=== PATIENT | female | born 1935 | race African-American/Black ===

== ENCOUNTER 2018-07-25 18:12 | Emergency (ER) | payer MEDICARE, OTHER ==
[~2018-07-25] VITALS: Ht 167.6 cm; Wt 54.4 kg
[2018-07-25 18:12] VITALS: BP 0/0
[2018-07-25] MEDS ORDERED: Calcium Chloride 10% 10ml carpuject IVP ONE (18:51)
[2018-07-25] MEDS ORDERED: Amiodarone 150mg/ml 3ml Amp ONE (18:51)
[2018-07-25] MEDS ORDERED: Sodium Bicarbonate 8.4% 50ml Inj ONE (18:51)
[2018-07-25 20:51] VITALS: BP 0/0
--- NOTE | 2018-07-25 21:38 | Emergency Room Report ---
History of Present Illness General Chief Complaint: CPR Source: Patient, EMS Present Illness HPI 73-year-old female presents ED in cardiac arrest. Per EMS family called 911 because patient appeared unresponsive approximately 30 minutes prior to arrival. Per EMS patient was having agonal breathing and bradycardic. Intubated. Given atropine 2. On transcutaneous pacing. Upon arrival to ED patient had lost pulses. Family states that patient has no known medical problems. However she does not see a doctor. Does not take any medications. Family states that patient was feeling fine until today. No other aggravating relieving factors. No other associated symptoms Allergies: Coded Allergies: UNABLE TO ASSESS (Unverified , 07/25/18) Patient History Past Medical History: none Past Surgical History: none Pertinent Family History: none Social History: Denies: smoking, alcohol use, drug use Now: No Immunizations: UTD Reviewed Nursing Documentation: PMH: Agreed; PSxH: Agreed Nursing Documentation-PMH Past Medical History Deferred: Patient Unconscious Past Medical History: No Stated History Review of Systems All Other Systems: limited Physical Exam Vital Signs Date Time Temp Pulse Resp B/P (MAP) Pulse Ox O2 Delivery O2 Flow Rate FiO2 07/25/18 18:10 0 0 0/0 0 Ambu-Bag Sp02 EP Interpretation: reviewed, abnormal General Appearance: other - unresponsive Head: normocephalic Eyes: bilateral eye normal inspection, bilateral eye PERRL ENT: hearing grossly normal, normal pharynx, no angioedema, normal voice Neck: normal inspection Respiratory: other - intubated Cardiovascular #1: other - no pulse Gastrointestinal: normal inspection Rectal: deferred Genitourinary: no CVA tenderness Musculoskeletal: normal inspection Neurologic: other - unresponsive Psychiatric: other - unresponsive Skin: cyanosis Lymphatic: normal inspection Procedures Critical Care Time Critical Care Time i. I feel this is a highly complex case requiring extensive working including EKG/Rhythm strip, Xray/CT/US, Blood/urine lab work, repeat exams while in ED, and administration of strong opiates/narcotics for pain control, admission to hospital or close patient follow up. Total time: 30 min bedside evaluation and treatment excludes procedures (EKG). Reason for critical care: cardiac arrest Possible complications: hypotension, hypertension, PA, shock, arrhythmias, metabolic acidosis, end organ damage, respiratory failure. Interventions: ACLS, chest compressions, defbrillation, amiodarone, calcium/ bicarbonate, epi. evaluation with bedside sono Course: Patient presenting a cardiac arrest. Initially bradycardic with agonal breathing per EMS. Initial rhythm PEA. Given calcium and bicarbonate. Given multiple doses of epinephrine. Accu-Chek within normal limits. Intubated in the field. Patient had a few episodes of ventricular fibrillation and was subsequently shocked. Given amiodarone. After multiple rounds of resuscitation patient remains in PEA. Prognosis poor. decision made to terminate resuscitative efforts. Patient expires Consultations: nursing staff, EMS, family Performed by: Dr Altamirano Tolerated well condition = j. because of unstable vital signs this patient had a condition that could potentially threaten life or limb. I feel this is a critical patient who required my full attention while patient was considered critical. Total Critical Care Time excluding procedures was greater than 35 minutes Cardioversion Cardioversion: Consent: Emergent Indication: Other - Vfib Type: Desynchonis Response: Other - PEA Attempts: Other - multiple Patient Tolerated: Poor Complications: None CPR/Code Blue CPR/Code Blue Narrative see code blue sheet for full narrative Medical Decision Making ER Course 73-year-old female presents ED in cardiac arrest. Unresponsive. Intubated DifferentialPEA, PA, sepsis Patient based on stretcher. Initially bradycardic however upon arrival patient had lost pulses. Initial rhythm PEA. Given calcium and bicarbonate. Given multiple rounds of epinephrine. Chest compressions started. Patient being ventilated. After multiple rounds of compressions patient went into ventricular fibrillation. Subsequently shocked. Shocked multiple times. Given amiodarone for refractory V. fib. Patient returned to PEA After multiple rounds of resuscitation patient remains in PEA. Prognosis poor. Decision made to terminate resuscitative efforts. Patient expires I discussed with patient's sons. They are not aware of any medical condition for the patient. However they did admit that patient does not see a doctor. Diagnosiscardiac arrest Patient expires in ED Last Vital Signs Date Time Temp Pulse Resp B/P (MAP) Pulse Ox O2 Delivery O2 Flow Rate FiO2 07/25/18 20:51 0 0 0/0 0 Ambu-Bag Status: worsened Disposition: Condition: Scripts Unable to Obtain Active Prescriptions or Reported Meds Referrals: NOT CHOSEN IPA/,REFERRING (PCP) Yuniel Altamirano MD Jul 25, 2018 21:38
== END 2018-07-25 22:05 | disposition expired ==
LOC: EDBD 18:12 → EMR 18:50 → EDBD 18:50 → CANBEDREQ 20:34 → EMR 22:05
DX: I46.9 Cardiac arrest, cause unspecified (principal); I49.01 Ventricular fibrillation
CPT/HCPCS: 92950; 96374; 99291; J0282; J3490; 99285